=== PATIENT | female | born 1965 | race Native Hawaiian/Other Pacific Islander ===

== ENCOUNTER 2022-09-17 14:20 | Outpatient (CLI) | payer MEDICARE, BC | END 2022-09-17 23:59 | disposition home or self-care (01) | LOC: RAD 14:20 | PROVIDERS: ATTEND Physician Assistant | DX: R13.14 Dysphagia, pharyngoesophageal phase (principal); R13.10 Dysphagia, unspecified; K21.9 Gastro-esophageal reflux disease without esophagitis | CPT/HCPCS: 74230 ==